=== PATIENT | male | born 1990 | race Caucasian/White ===

== ENCOUNTER 2017-02-25 08:26 | Emergency (ER) | payer BC, OTHER ==
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
== END 2017-02-25 10:14 | disposition home or self-care (01) ==
LOC: ER 08:26
DX: G89.11 Acute pain due to trauma (principal); M54.6 Pain in thoracic spine; V53.5XXA Driver of pick-up truck or van injured in collision with car, pick-up truck or van in traffic accident, initial encounter; Y92.410 Unspecified street and highway as the place of occurrence of the external cause
CPT/HCPCS: 72072; 99283

== ENCOUNTER 2019-01-01 20:34 | Emergency (ER) | payer BC ==
[2019-01-01] MEDS ORDERED: HYDROCODONE/APAP 5/325MG TABLET PO ONE ×2 (21:09→23:03)
[2019-01-01] MEDS ORDERED: PROPARACAINE HCL OPTH 15ML BTL OPTH ONE (21:59)
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
[2019-01-01] MEDS ORDERED: GENTAMICIN SULFATE 0.3% OPTH 5 ML BTL OPTH ONE (22:47)
== END 2019-01-01 23:19 | disposition home or self-care (01) ==
LOC: ER 20:34
DX: T26.61XA Corrosion of cornea and conjunctival sac, right eye, initial encounter (principal); T52.3X1A Toxic effect of glycols, accidental (unintentional), initial encounter; S05.01XA Injury of conjunctiva and corneal abrasion without foreign body, right eye, initial encounter; Y93.89 Activity, other specified; Y92.009 Unspecified place in unspecified non-institutional (private) residence as the place of occurrence of the external cause
CPT/HCPCS: 99283; 99284